=== PATIENT | male | born 1960 | race Two or more races ===

== ENCOUNTER 2022-05-03 22:08 | Emergency (ER) | payer OTHER ==
[~2022-05-03] VITALS: Ht 170.2 cm; Wt 70.8 kg
== END 2022-05-03 23:56 | disposition home or self-care (01) ==
LOC: ER 22:08
DX: S09.90XA Unspecified injury of head, initial encounter (principal); V49.9XXA Car occupant (driver) (passenger) injured in unspecified traffic accident, initial encounter; Y93.9 Activity, unspecified; Y92.413 State road as the place of occurrence of the external cause; Y99.9 Unspecified external cause status; M50.322 Other cervical disc degeneration at C5-C6 level

== ENCOUNTER 2023-06-08 05:25 | Day surgery (SDC) | payer OTHER ==
[2023-06-02 10:00] LABS: HEMATOCRIT 40.9 % (39.0-48.0); HEMOGLOBIN 13.7 g/dL (13-16.00); MEAN CORPUSCULAR HEMOGLOBIN 32.5 pg (27.00-32.0); MEAN CORPUSCULAR HGB CONC 33.5 g/dl (32.0-36.0); PLATELET COUNT 222 K/uL (150-450); RED BLOOD COUNT 4.21 M/uL (4.00-6.00); RED CELL DISTRIBUTION WIDTH 12.4 % (11.5-14.5)
[2023-06-02 10:16] LABS: PH,URINE 5.5 (5.0-8.0); URINE APPEARANCE Clear; URINE BILIRRUBIN Negative (NEGATIVE); URINE BLOOD Negative; URINE COLOR Yellow; URINE GLUCOSE Negative (NEGATIVE); URINE LEUKOCYTE Negative; URINE NITRATE Negative; URINE PROTEIN Trace (NEGATIVE)
[2023-06-02 10:18] LABS: URINE RBC 7.3 uL (0.0-20.8); URINE WBC 2.9 uL (0.0-23.2)
[2023-06-02 10:32] LABS: INR 0.98; PARTIAL THROMBOPLASTIN TIME 26.6 SECONDS (22.0-34.0); PROTHROMBIN TIME 10.3 SECONDS (9.0-11.5)
[2023-06-02 10:41] LABS: URINE BACTERIA 3.7 uL (0.0-1933)
[2023-06-02 11:16] LABS: BILIRUBIN TOTAL 0.63 mg/dL (0.3-1.2); CALCIUM 8.9 mg/dL (8.5-10.1); CREATININE SERUM 1.17 mg/dL (0.70-1.30); GFR 62.56; GLOBULINA 3.1 G/DL (2.4-3.5); POTASSIUM 3.92 mEq/L (3.5-5.1); TOTAL PROTEIN 7.1 gm/dL (6.4-8.2)
[2023-06-02 11:30] LABS: COL EPI 142 SECONDS (82-175)
[~2023-06-08] VITALS: Ht 170.2 cm; Wt 71.2 kg
[~2023-06-08 05:25] MED LIST: DICLOFENAC SODI75 MG PO
== END 2023-06-08 13:05 | disposition home or self-care (01) ==
LOC: CIR.AMB 05:25
PROVIDERS: ATTEND Orthopaedic Surgery
DX: S52.572A Other intraarticular fracture of lower end of left radius, initial encounter for closed fracture (principal); I10 Essential (primary) hypertension; Z20.822 Contact with and (suspected) exposure to COVID-19; M25.531 Pain in right wrist; M25.532 Pain in left wrist
CPT/HCPCS: 25609; 25280; L8699

== ENCOUNTER 2023-09-29 12:22 | Outpatient (CLI) | payer OTHER | END 2023-09-29 12:27 | disposition home or self-care (01) | LOC: RAD 12:22 | PROVIDERS: ATTEND Orthopaedic Surgery | DX: M25.532 Pain in left wrist (principal); M65.842 Other synovitis and tenosynovitis, left hand ==

== ENCOUNTER 2023-09-29 13:03 | Outpatient (CLI) | payer OTHER | END 2023-09-29 13:04 | disposition home or self-care (01) | LOC: NUCLEAR 13:03 | PROVIDERS: ATTEND Orthopaedic Surgery | DX: M81.0 Age-related osteoporosis without current pathological fracture (principal) ==

== ENCOUNTER 2024-07-21 07:06 | Outpatient (CLI) | payer OTHER | END 2024-07-21 07:13 | disposition home or self-care (01) | LOC: SONOGRAMA 07:06 | PROVIDERS: ATTEND Family Medicine | DX: R10.9 Unspecified abdominal pain (principal); R19.00 Intra-abdominal and pelvic swelling, mass and lump, unspecified site ==

== ENCOUNTER → 2024-07-25 09:23 | Outpatient (CLI) | payer OTHER | END | disposition home or self-care (01) | LOC: NUCLEAR 09:23 | DX: R07.9 Chest pain, unspecified (principal); R00.2 Palpitations ==

== ENCOUNTER → 2024-09-12 07:08 | Outpatient (CLI) | payer OTHER ==
[2024-09-12 08:17] LABS: COL EPI 106 SECONDS (82-175)
[2024-09-12 08:20] LABS: HEMATOCRIT 41.6 % (39.0-48.0); HEMOGLOBIN 14.2 g/dL (13-16.00); MEAN CELL VOLUME 94.6 fL (80.0-100.00); MEAN CORPUSCULAR HEMOGLOBIN 32.3 pg (27.00-32.0); MEAN CORPUSCULAR HGB CONC 34.1 g/dl (32.0-36.0); PLATELET COUNT 215 K/uL (150-450); RED BLOOD COUNT 4.39 M/uL (4.00-6.00); RED CELL DISTRIBUTION WIDTH 12.2 % (11.5-14.5)
[2024-09-12 08:21] LABS: INR 0.97; PARTIAL THROMBOPLASTIN TIME 27.3 SECONDS (22.0-34.0); PROTHROMBIN TIME 10.6 SECONDS (9.0-11.5)
[2024-09-12 08:30] LABS: PH,URINE 5.5 (5.0-8.0); URINE APPEARANCE Cloudy; URINE BILIRRUBIN Negative (NEGATIVE); URINE BLOOD Negative; URINE COLOR Dark Yellow; URINE GLUCOSE Negative (NEGATIVE); URINE KETONE Negative (NEGATIVE); URINE LEUKOCYTE Negative; URINE NITRATE Negative; URINE PROTEIN Trace (NEGATIVE)
[2024-09-12 08:34] LABS: URINE BACTERIA 6.1 uL (0.0-1933); URINE EPITHELIAL CELLS 3.6 uL (0.0-38.8); URINE RBC 8.3 uL (0.0-20.8); URINE WBC 2.6 uL (0.0-23.2)
[2024-09-12 08:40] LABS: URINE CAST 0.44 uL (0.0-1.40)
[2024-09-12 08:41] LABS: ALBUMIN 4.2 gm/dL (3.4-5.0); BILIRUBIN TOTAL 0.72 mg/dL (0.3-1.2); CALCIUM 9.1 mg/dL (8.5-10.1); CREATININE SERUM 1.05 mg/dL (0.70-1.30); GFR 70.67; GLOBULINA 3.1 G/DL (2.4-3.5); MAGNESIUM 2.4 mg/dL (1.8-2.4); PHOSPHOROUS 2.7 mg/dL (2.5-4.9); POTASSIUM 3.78 mEq/L (3.5-5.1); TOTAL PROTEIN 7.3 gm/dL (6.4-8.2)
== END | disposition home or self-care (01) ==
LOC: LAB 07:08
PROVIDERS: ATTEND Orthopaedic Surgery
DX: D64.9 Anemia, unspecified (principal); E55.9 Vitamin D deficiency, unspecified; M85.9 Disorder of bone density and structure, unspecified; E56.1 Deficiency of vitamin K; E21.3 Hyperparathyroidism, unspecified; M81.8 Other osteoporosis without current pathological fracture; D68.8 Other specified coagulation defects; N39.0 Urinary tract infection, site not specified; E11.9 Type 2 diabetes mellitus without complications; I10 Essential (primary) hypertension; Z76.89 Persons encountering health services in other specified circumstances

== ENCOUNTER 2024-09-26 05:19 | Day surgery (SDC) | payer OTHER ==
[2024-09-21 12:48] VITALS: BP 140/80
[~2024-09-26] VITALS: Ht 170.2 cm; Wt 71.2 kg
[2024-09-26] MEDS ORDERED: BUPIVACAINE HCL/MPF 0.5% 30ML VIAL ONE (07:30)
[2024-09-26] MEDS ORDERED: CEFAZOLIN SODIUM 1,000 MG VIAL ONE (07:30)
[2024-09-26] MEDS ORDERED: SUGAMMADEX SODIUM 200 MG/2 ML VIAL IV ONE (08:36)
[2024-09-26] MEDS ORDERED: MORPHINE SULFATE 4 MG/ML VIAL IV ONE (09:55)
== END 2024-09-26 11:10 | disposition home or self-care (01) ==
LOC: CIR.AMB 05:19
PROVIDERS: ATTEND Orthopaedic Surgery
DX: M65.832 Other synovitis and tenosynovitis, left forearm (principal); T84.84XD Pain due to internal orthopedic prosthetic devices, implants and grafts, subsequent encounter

== ENCOUNTER 2024-10-28 07:13 | Emergency (ER) | payer OTHER ==
[~2024-10-28] VITALS: Ht 170.2 cm; Wt 71.2 kg
[2024-10-28 09:19] LABS: HEMATOCRIT 39.1 % (39.0-48.0); HEMOGLOBIN 12.9 g/dL (13-16.00); MEAN CELL VOLUME 96.4 fL (80.0-100.00); MEAN CORPUSCULAR HEMOGLOBIN 31.7 pg (27.00-32.0); MEAN CORPUSCULAR HGB CONC 32.9 g/dl (32.0-36.0); PLATELET COUNT 231 K/uL (150-450); RED BLOOD COUNT 4.06 M/uL (4.00-6.00); RED CELL DISTRIBUTION WIDTH 12.4 % (11.5-14.5)
[2024-10-28 10:02] LABS: CALCIUM 9.5 mg/dL (8.5-10.1); CREATININE SERUM 0.87 mg/dL (0.70-1.30); GFR 87.79; POTASSIUM 4.09 mEq/L (3.5-5.1); URIC ACID 6.7 mg/dL (3.5-8.5)
== END 2024-10-28 11:06 | disposition home or self-care (01) ==
LOC: ER 07:15
PROVIDERS: General Practice
DX: R60.0 Localized edema (principal)

== ENCOUNTER 2025-02-09 08:43 | Outpatient (CLI) | payer OTHER | END 2025-02-09 08:46 | disposition home or self-care (01) | LOC: RAD 08:43 | PROVIDERS: ATTEND Orthopaedic Surgery | DX: M25.532 Pain in left wrist (principal) ==

== ENCOUNTER 2025-08-15 06:50 | Emergency (ER) | payer OTHER ==
[~2025-08-15] VITALS: Ht 170.2 cm; Wt 73.9 kg
[2025-08-15 08:18] VITALS: BP 144/84; O2SAT 100
[2025-08-15] MEDS ORDERED: DEXAMETHASONE SODIUM PHOSPHATE 4 MG/ML VIAL IM STA (08:28)
[2025-08-15] MEDS ORDERED: KETOROLAC TROMETHAMINE 30 MG VIAL IM STA (08:28)
[2025-08-15] MEDS ORDERED: DEXAMETHASONE SODIUM PHOSPHATE 4 MG/ML VIAL ONE (08:36)
[2025-08-15] MEDS ORDERED: KETOROLAC TROMETHAMINE 30 MG VIAL ONE (08:36)
[2025-08-15] MEDS ORDERED: NAPROXEN500 MG PO (12:27)
== END 2025-08-15 14:31 | disposition home or self-care (01) ==
LOC: ER 06:51
DX: M25.561 Pain in right knee (principal); Z91.018 Allergy to other foods
CPT/HCPCS: 73560; 96372; 99283; J1100; J1885